=== PATIENT | female | born 2000 | race Two or more races ===

== ENCOUNTER 2018-12-23 06:49 | Emergency (ER) | payer MEDICAID ==
[~2018-12-23] VITALS: Ht 165.1 cm; Wt 75.0 kg
[2018-12-23] MEDS ORDERED: ALBUTEROL (0.083%) 2.5MG/3ML NEB HHN STA (07:30)
[2018-12-23] MEDS ORDERED: IPRATROPIUM BROMIDE (0.02%) 0.5MG/2.5ML NEB HHN STA (07:30)
[2018-12-23] MEDS ORDERED: ACETAMINOPHEN 325MG TABLET PO ONE (08:45)
[2018-12-23 09:03] VITALS: BP 118/60
== END 2018-12-23 09:04 | disposition home or self-care (01) ==
LOC: ER 06:49
DX: O99.89 Other specified diseases and conditions complicating pregnancy, childbirth and the puerperium (principal); B34.9 Viral infection, unspecified
CPT/HCPCS: 87804; 94640; 99283; J7611; Z7610

== ENCOUNTER 2019-01-05 12:55 | Emergency (ER) | payer MEDICAID ==
[~2019-01-05] VITALS: Ht 152.4 cm; Wt 70.0 kg
[2019-01-05] MEDS ORDERED: SODIUM CHLORIDE 0.9% 1,000 ML IV ONE (13:36)
[2019-01-05 14:24] LABS: CLARITY URINE CLOUDY (CLEAR); COLOR URINE YELLOW (YELLOW); KETONES URINE 1+ (NEGATIVE); LEUKOCYTE ESTERASE URINE 2+ (NEGATIVE); NITRITE URINE POSITIVE (NEGATIVE); OCCULT BLOOD URINE NEGATIVE (NEGATIVE); PROTEIN URINE NEGATIVE (NEGATIVE); SPECIFIC GRAVITY URINE 1.014 (1.005-1.030); UROBILINOGEN URINE 0.2 E.U./dL (0.2-1.0)
[2019-01-05 14:30] LABS: BASOPHILS % 0.5 % (0.0-2.0); EOSINOPHILS % 0.5 % (0.0-5.0); LYMPHOCYTES % 20.1 % (20.0-50.0); MEAN CORPUSCULAR HEMOGLOBIN 31.9 pg (28.0-32.0); MEAN CORPUSCULAR VOLUME 93.4 fL (81.0-99.0); MEAN PLATELET VOLUME 11.1 fl (7.4-10.4); MONOCYTES % 5.6 % (2.0-8.0); NEUTROPHILS % 73.3 % (40.0-76.0); PLATELET 213 x1000/uL (130-400); RED BLOOD CELL COUNT 4.07 mill/uL (4.2-5.4); RED CELL DISTRIBUTION WIDTH 12.9 % (11.6-14.6)
[2019-01-05 14:37] LABS: CHLORIDE 106 mEq/L (98-107)
[2019-01-05 15:03] LABS: B-HCG QUANTITATIVE 8284 mIU/mL (<3)
[2019-01-05] MEDS ORDERED: CEFAZOLIN 1000MG PREMIX 50 ML IV ONE (15:30)
[2019-01-05] MEDS ORDERED: ACETAMINOPHEN 325MG TABLET PO ONE (16:15)
[2019-01-05 17:08] VITALS: BP 113/65
== END 2019-01-05 17:15 | disposition home or self-care (01) ==
LOC: ER 12:55
DX: O02.1 Missed abortion (principal); O23.41 Unspecified infection of urinary tract in pregnancy, first trimester; Z3A.10 10 weeks gestation of pregnancy
CPT/HCPCS: 36415; 76801; 76817; 80053; 81003; 81025; 84702; 85025; 86850; 86900; 86901; 87077; 87086; 87186; 96365; 99284; J0690; J7030

== ENCOUNTER 2019-09-20 07:37 | Emergency (ER) | payer MEDICAID ==
[~2019-09-20] VITALS: Ht 165.1 cm; Wt 68.0 kg
[2019-09-20 10:00] VITALS: BP 120/74
== END 2019-09-20 10:52 | disposition left against medical advice (07) ==
LOC: ER 07:37
DX: Z53.21 Procedure and treatment not carried out due to patient leaving prior to being seen by health care provider (principal)

== ENCOUNTER 2019-10-28 07:52 | Emergency (ER) | payer MEDICAID ==
[~2019-10-28] VITALS: Ht 157.5 cm; Wt 79.0 kg
[2019-10-28 09:36] LABS: BASOPHILS % 0.3 % (0.0-2.0); EOSINOPHILS % 0.3 % (0.0-5.0); HEMATOCRIT. 35.2 % (36.0-48.0); MEAN CORPUSCULAR HEMOGLOBIN 31.2 pg (28.0-32.0); MEAN CORPUSCULAR VOLUME 91.4 fL (81.0-99.0); MEAN PLATELET VOLUME 10.8 fl (7.4-10.4); MONOCYTES % 5.8 % (2.0-8.0); NEUTROPHILS % 71.6 % (40.0-76.0); PLATELET 252 x1000/uL (130-400); RED BLOOD CELL COUNT 3.85 mill/uL (4.2-5.4); RED CELL DISTRIBUTION WIDTH 12.8 % (11.6-14.6)
[2019-10-28 09:43] LABS: CHLORIDE 104 mEq/L (98-107)
[2019-10-28] MEDS ORDERED: ACETAMINOPHEN 325MG TABLET PO ONE (10:00)
[2019-10-28 10:06] LABS: B-HCG QUANTITATIVE 126901 mIU/mL (<3)
[2019-10-28 10:19] VITALS: BP 106/51
[2019-10-28 10:43] LABS: CLARITY URINE CLOUDY (CLEAR); COLOR URINE YELLOW (YELLOW); KETONES URINE TRACE (NEGATIVE); LEUKOCYTE ESTERASE URINE 2+ (NEGATIVE); NITRITE URINE POSITIVE (NEGATIVE); OCCULT BLOOD URINE NEGATIVE (NEGATIVE); PH URINE 5.5 (4.5-8.0); PROTEIN URINE NEGATIVE (NEGATIVE); SPECIFIC GRAVITY URINE 1.021 (1.005-1.030); UROBILINOGEN URINE 0.2 E.U./dL (0.2-1.0)
== END 2019-10-28 11:40 | disposition home or self-care (01) ==
LOC: ER 07:52
DX: O20.0 Threatened abortion (principal); O23.41 Unspecified infection of urinary tract in pregnancy, first trimester; Z3A.08 8 weeks gestation of pregnancy
CPT/HCPCS: 36415; 76801; 80053; 81003; 81025; 84702; 85025; 86850; 86900; 93005; 99285

== ENCOUNTER 2019-12-17 11:07 | Emergency (ER) | payer MEDICAID ==
[~2019-12-17] VITALS: Ht 165.1 cm; Wt 70.3 kg
[2019-12-17] MEDS ORDERED: ACETAMINOPHEN 325MG TABLET PO PRN (12:00)
[2019-12-17 12:30] LABS: BASOPHILS % 0.4 % (0.0-2.0); EOSINOPHILS % 2.1 % (0.0-5.0); HEMATOCRIT. 36.1 % (36.0-48.0); HEMOGLOBIN. 12.5 g/dL (12.0-16.0); LYMPHOCYTES % 18.5 % (20.0-50.0); MEAN CORPUSCULAR HEMOGLOBIN 31.2 pg (28.0-32.0); MEAN CORPUSCULAR VOLUME 90.4 fL (81.0-99.0); MEAN PLATELET VOLUME 10.9 fl (7.4-10.4); MONOCYTES % 8.7 % (2.0-8.0); NEUTROPHILS % 70.3 % (40.0-76.0); PLATELET 228 x1000/uL (130-400)
[2019-12-17 12:37] LABS: CLARITY URINE CLOUDY (CLEAR); COLOR URINE DARK YELLOW (YELLOW); KETONES URINE 1+ (NEGATIVE); LEUKOCYTE ESTERASE URINE 3+ (NEGATIVE); NITRITE URINE POSITIVE (NEGATIVE); OCCULT BLOOD URINE NEGATIVE (NEGATIVE); PROTEIN URINE 1+ (NEGATIVE); SPECIFIC GRAVITY URINE 1.021 (1.005-1.030)
[2019-12-17 12:39] LABS: CHLORIDE 105 mEq/L (98-107)
[2019-12-17 12:47] LABS: METHADONE URINE SCREEN NEGATIVE (NEGATIVE); OPIATES URINE SCREEN NEGATIVE (NEGATIVE); PHENCYCLIDINE URINE SCREEN NEGATIVE (NEGATIVE)
[2019-12-17 12:48] LABS: *AMPHETAMINES SCREEN URINE NEGATIVE (NEGATIVE); *BARBITURATES SCREEN URINE NEGATIVE (NEGATIVE); *BENZODIAZEPINES SCREEN URINE NEGATIVE (NEGATIVE); *COCAINE SCREEN URINE NEGATIVE (NEGATIVE); CANNABINOID URINE SCREEN NEGATIVE (NEGATIVE)
[2019-12-17 15:17] VITALS: BP 118/78
== END 2019-12-17 15:17 | disposition home or self-care (01) ==
LOC: ER 11:07
DX: O23.32 Infections of other parts of urinary tract in pregnancy, second trimester (principal); I49.9 Cardiac arrhythmia, unspecified; Z3A.15 15 weeks gestation of pregnancy
CPT/HCPCS: 36415; 76801; 80053; 80305; 81003; 85025; 87077; 87186; 93005; 99285

== ENCOUNTER 2020-09-30 17:34 | Emergency (ER) | payer MEDICAID ==
[~2020-09-30] VITALS: Ht 165.1 cm; Wt 73.0 kg
[2020-09-30] MEDS ORDERED: ACETAMINOPHEN 325MG TABLET PO STA (18:17)
[2020-09-30] MEDS ORDERED: IBUPROFEN 600MG TABLET PO STA (18:17)
[2020-09-30] MEDS ORDERED: IBUP-2028 MT (19:45)
[2020-09-30 20:07] VITALS: BP 103/64
[2020-10-04] MEDS ORDERED: CEPH500T MT (12:14)
== END 2020-09-30 20:24 | disposition home or self-care (01) ==
LOC: ER 17:34
DX: R51.9 Headache, unspecified (principal); M79.18 Myalgia, other site; Z20.822 Contact with and (suspected) exposure to COVID-19; R06.02 Shortness of breath; R07.89 Other chest pain
CPT/HCPCS: 99283